=== PATIENT | male | born 1975 | race American Indian/Alaskan Native ===

== ENCOUNTER 2018-01-03 11:24 | Emergency (ER) | payer OTHER ==
[2018-01-03] MEDS ORDERED: SUBLIMAZE IV ONE (12:04)
[2018-01-03] MEDS ORDERED: NACL 0.9% 500 ML 500 ML IV ONE (12:05)
--- NOTE | 2018-01-03 12:06 | Emergency Department Report ---
ED General Adult HPI - General Chief complaint: Headache Stated complaint: HYPERTENSION Time Seen by Provider: 01/03/18 11:45 Source: patient, RN notes reviewed Mode of arrival: Ambulatory Limitations: No Limitations - History of Present Illness Initial comments: This is a 42-year-old male. The patient is unknown to this provider previously. He does not have a local primary care doctor. He has a past medical history of hypertension. He reports he is not taking his blood pressure medication, lisinopril, in over a year. He presents to the ER with a complaint of headache. The headache is temporal. It is not sudden or thunderclap in nature. It did not reach maximal intensity within an hour. It is not the worse headache of his life. It is consistent with prior headaches that he has had. There is no neck pain. There is no neck stiffness. There is no visual changes, no weakness, numbness, unsteady gait, there is also no chest pain, shortness of breath or abdominal pain. He reports a family history of maternal aneurysm, uncertain if any other history. -: Gradual Location: head Quality: aching Consistency: constant Improves with: medication Worsens with: cold therapy Associated Symptoms: headaches. denies: confusion, chest pain, cough, diaphoresis, fever/chills, loss of appetite, malaise, nausea/vomiting, rash, seizure, shortness of breath, syncope, weakness - Related Data Previous Rx's Medication Instructions Recorded Last Taken Type Metoclopramide [Reglan] 10 mg PO QID PRN #30 tab 01/03/18 Unknown Rx amLODIPine [Norvasc] 5 mg PO DAILY #30 tab 01/03/18 Unknown Rx Allergies Allergy/AdvReac Type Severity Reaction Status Date / Time No Known Allergies Allergy Verified 01/03/18 12:08 ED Review of Systems ROS: Stated complaint: HYPERTENSION Other details as noted in HPI Comment: All other systems reviewed and negative ED Past Medical Hx - Past Medical History Hx Hypertension: Yes - Surgical History Past Surgical History?: No - Social History Smoking Status: Never Smoker Substance Use Type: None - Medications Home Medications: Home Medications Medication Instructions Recorded Confirmed Last Taken Type Metoclopramide [Reglan] 10 mg PO QID PRN #30 tab 01/03/18 Unknown Rx amLODIPine [Norvasc] 5 mg PO DAILY #30 tab 06/01/18 Unknown Rx ED Physical Exam - General Limitations: No Limitations General appearance: alert, in no apparent distress - Head Head exam: Present: atraumatic, normocephalic - Eye Eye exam: Present: normal appearance, PERRL, EOMI, other (visual acuity intact to finger counting, color perception, reading at a close distance). Absent: nystagmus - ENT ENT exam: Present: normal exam, normal orophraynx, mucous membranes moist, normal external ear exam - Neck Neck exam: Present: normal inspection, full ROM - Respiratory Respiratory exam: Present: normal lung sounds bilaterally. Absent: respiratory distress - Cardiovascular Cardiovascular Exam: Present: regular rate, normal rhythm, normal heart sounds. Absent: bradycardia, tachycardia, irregular rhythm, systolic murmur, diastolic murmur, rubs, gallop - GI/Abdominal GI/Abdominal exam: Present: soft, normal bowel sounds. Absent: distended, tenderness, guarding, rebound, rigid, pulsatile mass - Rectal Rectal exam: Present: deferred - Extremities Exam Extremities exam: Present: normal inspection, full ROM, normal capillary refill. Absent: pedal edema, joint swelling, calf tenderness - Back Exam Back exam: Present: normal inspection. Absent: full ROM, CVA tenderness (R), paraspinal tenderness, vertebral tenderness - Neurological Exam Neurological exam: Present: alert, oriented X3, CN II-XII intact, normal gait, other (Extraocular movements intact. Tongue midline. No facial droop. Facial sensation intact to light touch in the V1, V2, V3 distribution bilaterally. 5 and 5 strength in 4 extremities.. Sensation is intact to light touch in 4 extremities.). Absent: motor sensory deficit - Psychiatric Psychiatric exam: Present: normal affect, normal mood - Skin Skin exam: Present: warm, dry, intact, normal color. Absent: rash ED Course Vital Signs 01/03/18 01/03/18 01/03/18 11:26 12:33 13:16 Temperature 98.6 F 98.6 F Pulse Rate 74 71 64 Respiratory 18 20 Rate Blood Pressure 237/160 179/123 Blood Pressure 148/119 [Right] O2 Sat by Pulse 98 100 Oximetry ED Medical Decision Making - Lab Data Result diagrams: 01/03/18 12:14 01/03/18 12:14 Vital Signs 01/03/18 01/03/18 01/03/18 11:26 12:33 13:16 Temperature 98.6 F 98.6 F Pulse Rate 74 71 64 Respiratory 18 20 Rate Blood Pressure 237/160 179/123 Blood Pressure 148/119 [Right] O2 Sat by Pulse 98 100 Oximetry Labs 01/03/18 01/03/18 01/03/18 12:14 12:14 12:14 WBC 5.2 RBC 4.63 Hgb 13.5 Hct 39.7 MCV 86 MCH 29 MCHC 34 RDW 14.6 Plt Count 260 Sodium 137 Potassium 3.9 Chloride 102.0 Carbon Dioxide 25 Anion Gap 14 BUN 16 Creatinine 1.4 Estimated GFR > 60 BUN/Creatinine Ratio 11 Glucose 94 Calcium 9.1 Magnesium 1.70 Total Creatine Kinase 1115 H TSH 1.090 - EKG Data When compared to previous EKG there are: previous EKG unavailable 01/03/18 15:56 Normal sinus, 64 beats per minute, T-wave inversion V2, incomplete right bundle branch block, abnormal EKG, not having chest pain, not a STEMI - Radiology Data Radiology results: report reviewed, image reviewed Noncontrast CT scan of the brain is negative. MR angiogram of the brain is negative for aneurysmal disease. - Medical Decision Making Differential diagnosis, including but not limited to: Migraine headache, tension headache, cluster headache, elevated blood pressure, medication noncompliance Assessment and plan: 42-year-old male with a primary complaint of headache that is similar to headaches she's had in the past. The headache is not sudden or thunderclap in nature, it did not reach maximal intensity within an hour. He does not have historical features to suggest aneurysmal subarachnoid hemorrhage. The patient is afebrile with reassuring vital signs within normal neurologic examination, with the exception of his elevated blood pressure. This was treated appropriately. We would be reluctant to decrease the patient' s blood pressure too quickly as we would not want to precipitate a hypoperfusion stroke. The patient felt much improved after pain medication, he is smiling and talking to his administrative tech in the room, a noncontrast CT scan of the brain was negative. Because of current technical and equipment issues, The CT angiogram is not working at this time. Therefore an MR angiogram was obtained which was negative. This was obtained to screen the patient for aneurysm given his family history. Patient will be discharged with amlodipine for blood pressure and was closely instructed to follow up with outpatient primary care, and diet and lifestyle modifications, including cessation of caffeine stimulants were reviewed with the patient, who verbalized understanding. Critical care attestation.: If time is entered above; I have spent that time in minutes in the direct care of this critically ill patient, excluding procedure time. ED Disposition Clinical Impression: Elevated blood pressure reading, Headache Disposition: DC-01 TO HOME OR SELFCARE Is pt being admited?: No Does the pt Need Aspirin: No Condition: Stable Instructions: Acute Headache (ED), Hypertension (ED) Additional Instructions: Discontinued consumption of stimulants, caffeinated beverages. Adhered to diet , lifestyle, physical fitness routinesas we have already discussed. Objective blood pressure medication as directed. Take the headache medication as needed/directed. Follow up with the primary care doctor within the next month. Elevated blood pressure. Long-term complications of hypertension and elevated blood pressure includes stroke, heart attack, disability, paralysis, loss of quality of life. return to the ER right away with new pain, worsened pain, migration of pain, fevers, chills, lethargy, irritability, projectile vomiting, change in mental status, confusion, inability to tolerate liquid feeds. Referrals: STEPHANI OSEGUERA MD [Primary Care Provider] - 3-5 Days [facility] [Provider Group] - 3-5 Days DORIAN MELGOZA MD [Staff Physician] - 3-5 Days LAZ BENITEZ MD [Staff Physician] - 3-5 Days
[2018-01-03 12:33] LABS: Hematocrit 39.7 % (35.5-45.6); Hemoglobin 13.5 gm/dl (11.8-15.2); Mean Corpuscular HGB Conc 34 % (32-34); Mean Corpuscular Hemoglobin 29 pg (28-32); Mean Corpuscular Volume 86 fl (84-94); Platelet Count 260 K/mm3 (140-440); Red Blood Count 4.63 M/mm3 (3.65-5.03); Red Cell Distribution Width 14.6 % (13.2-15.2)
[2018-01-03] MEDS ORDERED: APRESOLINE ONE (12:46)
[2018-01-03] MEDS ORDERED: APRESOLINE IV ONE (12:46)
[2018-01-03 12:51] LABS: BUN/Creatinine Ratio 11; Blood Urea Nitrogen 16 mg/dL (9-20); Calcium 9.1 mg/dL (8.4-10.2); Hemolysis Index 6
[2018-01-03] MEDS ORDERED: CARDENE 50 MG in NACL 0.9% 250ML 230 ML IV SCH (13:00)
--- NOTE | 2018-01-03 14:12 | Cat Scan Report ---
CT scan of head without IV contrast: History: Headache, hypertensive. Findings: Adipose and normal in size and midline in location. No evidence of acute ischemia, hemorrhage or mass. No extra-axial fluid collection. Normal brainstem and cerebellum. Normal visualized sinuses and mastoid air cells. Impression: No acute intracranial abnormality.
--- NOTE | 2018-01-03 15:30 | Magnetic Resonance Report ---
MRA of brain: History: Headache, hypertension. Findings: The vessels of [place] of [place] are widely patent. No evidence of aneurysm stenosis or occlusion. No evidence of dissection. Codominant vertebral arteries with normal basilar artery. origin of left posterior cerebral artery. Impression: No evidence of aneurysm.
[2018-01-03 17:20] VITALS: BP 158/117
== END 2018-01-03 17:02 | disposition home or self-care (01) ==
LOC: ED 11:24
DX: R51 Headache (principal); I10 Essential (primary) hypertension
CPT/HCPCS: 36415; 70450; 70544; 80048; 82550; 83735; 84443; 85027; 93005; 93010; 96361; 96374; 96375; 99284; J0360; J3010; J7040; J7050